=== PATIENT | male | born 1965 | race Caucasian/White ===

== ENCOUNTER 2017-04-01 09:35 | Inpatient (IN) | payer OTHER ==
[~2017-04-01 09:35] MED LIST: SERTRALINE HCL 50 MG TAB PO
[2017-04-01] MEDS ORDERED: OLANZapine 5 MG TAB PO (11:15)
[2017-04-01] MEDS ORDERED: ACETAMINOPHEN TAB 650MG DOSE (2X325MG) PO (11:15)
[2017-04-01] MEDS ORDERED: MOM 30ML SUSPENSION UDC PO (11:15)
[2017-04-01] MEDS ORDERED: traZODone 50 MG TAB PO (11:15)
[2017-04-01] MEDS ORDERED: DEXTROSE 50% 50 ML SYRINGE IV (13:45)
[2017-04-01] MEDS ORDERED: GLUCOSE 4 GM CHEW TABLET PO (13:45)
[2017-04-01] MEDS ORDERED: GLUCAGON FOR INJ 1 MG VIAL (J1610) SC (13:45)
[2017-04-01] MEDS: SERTRALINE HCL 50 MG TAB PO (13:52)
[2017-04-01 13:58] LABS: BEDSIDE GLUCOSE 171 MG/DL (70-105)
[2017-04-01] MEDS ORDERED: NITROGLYCERIN 0.4 MG SUBL TABLET SL (14:15)
[2017-04-01] MEDS: LOSARTAN 50 MG TAB PO (16:02)
[2017-04-01] MEDS: hydroCHLOROthiazide 25 MG TAB PO (16:02)
[2017-04-01] MEDS: amLODIPine 10 MG TAB PO (16:03)
[2017-04-01] MEDS: ASPIRIN 81 MG ENTERIC TAB PO (16:03)
[2017-04-01] MEDS: hydrOXYzine 25 MG TAB PO ×2 (16:03→21:11)
[2017-04-01] MEDS: GABAPENTIN 400 MG CAP PO (16:03)
[2017-04-01] MEDS: CLOPIDOGREL 75 MG TAB PO (16:03)
[2017-04-01] MEDS: OMEPRAZOLE 20 MG CAP PO (16:03)
[2017-04-01] MEDS: LORATADINE 10 MG TAB PO (16:03)
[2017-04-01] MEDS: HYDROXYCHLOROQUINE 200 MG TAB PO ×2 (16:44→21:11)
[2017-04-01] MEDS: CARVedilol 12.5 MG TAB PO ×2 (16:45→21:12)
[2017-04-01] MEDS: HumaLOG INSULIN (NovoLOG) PER UNIT SC ×2 (17:34→21:00)
[2017-04-01 20:50] LABS: BEDSIDE GLUCOSE 197 MG/DL (70-105)
[2017-04-01] MEDS ORDERED: PRAZOSIN 1 MG CAP PO (21:00)
[2017-04-01 21:08] LABS: BEDSIDE GLUCOSE 195 MG/DL (70-105)
[2017-04-01] MEDS: GABAPENTIN 300 MG CAP PO (21:11)
[2017-04-01] MEDS: PRAZOSIN 1 MG CAP PO (21:12)
[2017-04-02 06:38] LABS: BEDSIDE GLUCOSE 189 MG/DL (70-105)
[2017-04-02] MEDS: HumaLOG INSULIN (NovoLOG) PER UNIT SC ×4 (06:44→20:35)
[2017-04-02] MEDS: LOSARTAN 50 MG TAB PO (08:31)
[2017-04-02] MEDS: PRAZOSIN 1 MG CAP PO ×2 (08:31→20:32)
[2017-04-02] MEDS: hydrOXYzine 25 MG TAB PO ×2 (08:32→20:31)
[2017-04-02] MEDS: HYDROXYCHLOROQUINE 200 MG TAB PO ×2 (08:32→20:31)
[2017-04-02] MEDS: LORATADINE 10 MG TAB PO (08:32)
[2017-04-02] MEDS: amLODIPine 10 MG TAB PO (08:32)
[2017-04-02] MEDS: hydroCHLOROthiazide 25 MG TAB PO (08:32)
[2017-04-02] MEDS: CARVedilol 12.5 MG TAB PO ×2 (08:32→20:31)
[2017-04-02] MEDS: ASPIRIN 81 MG ENTERIC TAB PO (08:32)
[2017-04-02] MEDS: CLOPIDOGREL 75 MG TAB PO (08:32)
[2017-04-02] MEDS: GABAPENTIN 400 MG CAP PO ×2 (08:32→12:13)
[2017-04-02] MEDS: SERTRALINE HCL 50 MG TAB PO (08:32)
[2017-04-02] MEDS: OMEPRAZOLE 20 MG CAP PO (08:33)
[2017-04-02 13:38] LABS: BEDSIDE GLUCOSE 217 MG/DL (70-105)
[2017-04-02 17:08] LABS: BEDSIDE GLUCOSE 228 MG/DL (70-105)
[2017-04-02] MEDS: traZODone 100 MG TAB PO (20:32)
[2017-04-02] MEDS: MAALOX 30 ML SUSP *UDC PO (20:32)
[2017-04-02] MEDS: GABAPENTIN 300 MG CAP PO (20:32)
[2017-04-02 20:35] LABS: BEDSIDE GLUCOSE 194 MG/DL (70-105)
[2017-04-02] MEDS ORDERED: PERCOCET 5MG/325MG TAB PO (23:00)
[2017-04-03] MEDS: HumaLOG INSULIN (NovoLOG) PER UNIT SC ×4 (06:44→21:00)
[2017-04-03 06:45] LABS: BEDSIDE GLUCOSE 187 MG/DL (70-105)
[2017-04-03] MEDS: OMEPRAZOLE 20 MG CAP PO (08:28)
[2017-04-03] MEDS: SERTRALINE HCL 25 MG TABLET PO (08:28)
[2017-04-03] MEDS: amLODIPine 10 MG TAB PO (08:28)
[2017-04-03] MEDS: MONTELUKAST 10 MG TAB PO (08:28)
[2017-04-03] MEDS: LORATADINE 10 MG TAB PO (08:28)
[2017-04-03] MEDS: PRAZOSIN 1 MG CAP PO ×2 (08:29→21:30)
[2017-04-03] MEDS: HYDROXYCHLOROQUINE 200 MG TAB PO ×2 (08:29→21:29)
[2017-04-03] MEDS: GABAPENTIN 400 MG CAP PO ×2 (08:29→12:03)
[2017-04-03] MEDS: hydroCHLOROthiazide 25 MG TAB PO (08:29)
[2017-04-03] MEDS: CARVedilol 12.5 MG TAB PO ×2 (08:29→21:29)
[2017-04-03] MEDS: hydrOXYzine 25 MG TAB PO ×2 (08:29→21:29)
[2017-04-03] MEDS: CLOPIDOGREL 75 MG TAB PO (08:29)
[2017-04-03] MEDS: LOSARTAN 50 MG TAB PO (08:30)
[2017-04-03] MEDS: ASPIRIN 81 MG ENTERIC TAB PO (08:30)
[2017-04-03 12:10] LABS: BEDSIDE GLUCOSE 210 MG/DL (70-105)
[2017-04-03] MEDS: GABAPENTIN 300 MG CAP PO (21:29)
[2017-04-04] MEDS: HumaLOG INSULIN (NovoLOG) PER UNIT SC ×4 (06:33→21:34)
[2017-04-04] MEDS: ASPIRIN 81 MG ENTERIC TAB PO (08:24)
[2017-04-04] MEDS: PRAZOSIN 1 MG CAP PO ×2 (08:24→21:32)
[2017-04-04] MEDS: CLOPIDOGREL 75 MG TAB PO (08:24)
[2017-04-04] MEDS: GABAPENTIN 400 MG CAP PO ×2 (08:24→11:58)
[2017-04-04] MEDS: OMEPRAZOLE 20 MG CAP PO (08:24)
[2017-04-04] MEDS: hydroCHLOROthiazide 25 MG TAB PO (08:25)
[2017-04-04] MEDS: hydrOXYzine 25 MG TAB PO ×2 (08:25→21:31)
[2017-04-04] MEDS: CARVedilol 12.5 MG TAB PO ×2 (08:25→21:31)
[2017-04-04] MEDS: LORATADINE 10 MG TAB PO (08:25)
[2017-04-04] MEDS: amLODIPine 10 MG TAB PO (08:25)
[2017-04-04] MEDS: LOSARTAN 50 MG TAB PO (08:25)
[2017-04-04] MEDS: HYDROXYCHLOROQUINE 200 MG TAB PO ×2 (08:25→21:31)
[2017-04-04] MEDS: MONTELUKAST 10 MG TAB PO (08:25)
[2017-04-04] MEDS: SERTRALINE HCL 25 MG TABLET PO (08:26)
[2017-04-04 08:57] LABS: BEDSIDE GLUCOSE 185 MG/DL (70-105)
[2017-04-04 08:57] LABS: BEDSIDE GLUCOSE 199 MG/DL (70-105)
[2017-04-04 08:57] LABS: BEDSIDE GLUCOSE 237 MG/DL (70-105)
[2017-04-04] MEDS: MAALOX 30 ML SUSP *UDC PO (11:41)
[2017-04-04 11:51] LABS: BEDSIDE GLUCOSE 191 MG/DL (70-105)
[2017-04-04 17:25] LABS: BEDSIDE GLUCOSE 190 MG/DL (70-105)
[2017-04-04] MEDS: GABAPENTIN 300 MG CAP PO (21:31)
[2017-04-04 21:46] LABS: BEDSIDE GLUCOSE 218 MG/DL (70-105)
[2017-04-05 06:31] LABS: BEDSIDE GLUCOSE 164 MG/DL (70-105)
[2017-04-05] MEDS: HumaLOG INSULIN (NovoLOG) PER UNIT SC ×2 (06:39→11:54)
[2017-04-05] MEDS: OMEPRAZOLE 20 MG CAP PO (08:12)
[2017-04-05] MEDS: SERTRALINE HCL 25 MG TABLET PO (08:12)
[2017-04-05] MEDS: hydrOXYzine 25 MG TAB PO ×2 (08:12→11:55)
[2017-04-05] MEDS: hydroCHLOROthiazide 25 MG TAB PO (08:12)
[2017-04-05] MEDS: ASPIRIN 81 MG ENTERIC TAB PO (08:12)
[2017-04-05] MEDS: PRAZOSIN 1 MG CAP PO (08:13)
[2017-04-05] MEDS: CLOPIDOGREL 75 MG TAB PO (08:13)
[2017-04-05] MEDS: HYDROXYCHLOROQUINE 200 MG TAB PO (08:13)
[2017-04-05] MEDS: GABAPENTIN 400 MG CAP PO ×2 (08:13→11:56)
[2017-04-05] MEDS: LORATADINE 10 MG TAB PO (08:13)
[2017-04-05] MEDS: MONTELUKAST 10 MG TAB PO (08:13)
[2017-04-05] MEDS: CARVedilol 12.5 MG TAB PO (08:14)
[2017-04-05] MEDS: amLODIPine 10 MG TAB PO (08:14)
[2017-04-05] MEDS: LOSARTAN 50 MG TAB PO (08:15)
[2017-04-05 11:58] LABS: BEDSIDE GLUCOSE 203 MG/DL (70-105)
== END 2017-04-05 14:50 | disposition home or self-care (01) | DRG 755 ==
LOC: M ED 09:35 → M ED INP 11:02 → M PSY 12:25
PROVIDERS: Psychiatry & Neurology Psychiatry
DX: F43.10 Post-traumatic stress disorder, unspecified (principal); I10 Essential (primary) hypertension; Z79.899 Other long term (current) drug therapy; Z79.4 Long term (current) use of insulin; Z88.8 Allergy status to other drugs, medicaments and biological substances; G47.33 Obstructive sleep apnea (adult) (pediatric); I25.10 Atherosclerotic heart disease of native coronary artery without angina pectoris; E11.9 Type 2 diabetes mellitus without complications; K21.9 Gastro-esophageal reflux disease without esophagitis; M06.9 Rheumatoid arthritis, unspecified